=== PATIENT | male | born 1995 | race Caucasian/White ===

== ENCOUNTER → 2018-02-02 | Emergency (ER) | payer OTHER ==
[~2018-02-02] VITALS: Ht 182.9 cm; Wt 85.1 kg
[2018-02-03 00:51] VITALS: BP 145/80
== END | disposition home or self-care (01) ==
LOC: EME 22:08
DX: S83.8X1A Sprain of other specified parts of right knee, initial encounter (principal); X50.1XXA Overexertion from prolonged static or awkward postures, initial encounter; Y93.01 Activity, walking, marching and hiking
CPT/HCPCS: 73564; 99281; 99284